=== PATIENT | male | born 1965 | race Two or more races ===

== ENCOUNTER 2023-11-29 05:55 | Day surgery (SDC) | payer OTHER ==
[2023-11-29] MEDS ORDERED: MIDAZOLAM HCL 2 MG/2 ML VIAL IV ONE (09:15)
[2023-11-29] MEDS ORDERED: fentaNYL CITRATE 50 MCG/ML AMPUL IV PUSH ONE (09:15)
== END 2023-11-29 10:00 | disposition home or self-care (01) ==
LOC: AMB-ENDOS 05:55
PROVIDERS: ATTEND Colon & Rectal Surgery
DX: D12.2 Benign neoplasm of ascending colon (principal); K63.5 Polyp of colon; K57.30 Diverticulosis of large intestine without perforation or abscess without bleeding; Z88.6 Allergy status to analgesic agent

== ENCOUNTER 2023-12-16 13:51 | Emergency (ER) | payer OTHER ==
[~2023-12-16] VITALS: Ht 180.3 cm; Wt 113.4 kg
[2023-12-16] MEDS ORDERED: METFORMIN HCL1000 MG (15:12)
[2023-12-16] MEDS ORDERED: INVOKAMET 150-1 EACH PO (15:12)
[2023-12-16] MEDS ORDERED: PROTONIX20 MG PO (15:12)
[2023-12-16] MEDS ORDERED: TRICOR145 MG PO (15:13)
[2023-12-16] MEDS ORDERED: HYZAAR 100-251 EACH (15:13)
[2023-12-16] MEDS ORDERED: FAMOTIDINE/PF 20 MG in 0.9 % SODIUM CHLORIDE 8 ML IV PUSH STA (16:28)
[2023-12-16] MEDS ORDERED: ONDANSETRON HCL 2 MG/ML VIAL IV ONE (16:30)
[2023-12-16] MEDS ORDERED: MEPERIDINE HCL/PF 50 MG/ML VIAL IM ONE (16:30)
[2023-12-16] MEDS ORDERED: 0.9 % SODIUM CHLORIDE 1,000 ML IV SCH (16:30)
[2023-12-16 17:22] LABS: HEMATOCRIT 52.1 % (39.0-48.0); HEMOGLOBIN 17.2 g/dL (13-16.00); MEAN CELL VOLUME 83.4 fL (80.0-100.00); MEAN CORPUSCULAR HEMOGLOBIN 27.5 pg (27.00-32.0); PLATELET COUNT 273 K/uL (150-450); RED BLOOD COUNT 6.25 M/uL (4.00-6.00)
[2023-12-16 17:42] LABS: ALBUMIN 4.3 gm/dL (3.4-5.0); BILIRUBIN TOTAL 0.61 mg/dL (0.3-1.2); BILIRUBIN,CONJUGATED 0.18 mg/dL (0.0-0.2); BILIRUBIN,UNCONJUGATED 0.43 mg/dL (0.0-0.6); CALCIUM 10.1 mg/dL (8.5-10.1); GFR 76.48; GLOBULINA 3.8 G/DL (2.4-3.5); POTASSIUM 3.97 mEq/L (3.5-5.1); TOTAL PROTEIN 8.1 gm/dL (6.4-8.2)
[2023-12-16 17:44] LABS: INR 1.04; PARTIAL THROMBOPLASTIN TIME 26.6 SECONDS (22.0-34.0); PROTHROMBIN TIME 10.9 SECONDS (9.0-11.5)
[2023-12-16 17:58] LABS: PH,URINE 7.5 (5.0-8.0); URINE APPEARANCE Clear; URINE BACTERIA 11.3 uL (0.0-1933); URINE BILIRRUBIN Negative (NEGATIVE); URINE BLOOD Negative; URINE COLOR Dark Yellow; URINE LEUKOCYTE Negative; URINE NITRATE Negative; URINE PROTEIN Negative (NEGATIVE); URINE UROBILINOGEN 0.2 E.U./dl
[2023-12-16 18:00] LABS: URINE EPITHELIAL CELLS 0.7 uL (0.0-38.8); URINE GLUCOSE >=1000 MG/DL (NEGATIVE); URINE RBC 1.8 uL (0.0-20.8); URINE WBC 0.6 uL (0.0-23.2)
== END 2023-12-16 20:31 | disposition home or self-care (01) ==
LOC: ER 13:51
PROVIDERS: General Practice
DX: R10.11 Right upper quadrant pain (principal); E11.9 Type 2 diabetes mellitus without complications; Z79.84 Long term (current) use of oral hypoglycemic drugs; I10 Essential (primary) hypertension; Z88.6 Allergy status to analgesic agent